=== PATIENT | male | born 1945 | race Caucasian/White ===

== ENCOUNTER 2016-04-26 17:21 | Outpatient (CLI) | payer MEDICARE ==
--- NOTE | 2016-04-26 21:47 | RAD ---
CHEST TWO VIEWS: Date: 04-26-16 Comparison: 03-28-08 FINDINGS: The heart is normal in size. The lungs are clear. No acute infiltrate or effusion was seen. There is no vascular congestion. Median sternotomy sutures are noted from prior surgery. The patient al so appears to have a low anterior cervical fusion. IMPRESSION: No acute thoracic finding. POS: HOME
== END 2016-04-26 17:22 | disposition home or self-care (01) ==
LOC: BURRAD 17:21
PROVIDERS: ATTEND Family Medicine
DX: R05 Cough (principal)
CPT/HCPCS: 71020

== ENCOUNTER 2016-08-10 10:19 | Outpatient (CLI) | payer MEDICARE ==
--- NOTE | 2016-08-10 20:58 | RAD ---
CHEST 08/10/16 PA and lateral views are compared with a 04/26/16 study. The heart remains normal in size and the lungs are clear. No acute infiltrate or effusion was seen. The trachea is midline. IMPRESSION: Stable exam showing no acute finding. POS: HOME
== END 2016-08-10 10:20 | disposition home or self-care (01) ==
LOC: BURRAD 10:19
PROVIDERS: ATTEND Family Medicine
DX: R05 Cough (principal)
CPT/HCPCS: 71020

== ENCOUNTER 2018-06-19 09:59 | Outpatient (CLI) | payer MEDICARE ==
--- NOTE | 2018-06-19 17:34 | RAD ---
LEFT SHOULDER THREE VIEWS: Date: 06-19-18 FINDINGS: No fracture, dislocation, or AC joint widening was seen. There is no periarticular calcification. IMPRESSION: No significant findings. POS: HOME
--- NOTE | 2018-06-19 17:39 | RAD ---
CHEST TWO VIEWS: Date: 06-19-18 Comparison: 08-10-16 FINDINGS: The heart is normal in size and the lungs are clear. No infiltrate or effusion is seen. There is no c ongestive change or other cause for dyspnea. IMPRESSION: No acute findings. POS: HOME
== END 2018-06-19 10:00 | disposition home or self-care (01) ==
LOC: BURRAD 09:59
PROVIDERS: ATTEND Family Medicine
DX: M25.512 Pain in left shoulder (principal); R06.00 Dyspnea, unspecified
CPT/HCPCS: 71046